=== PATIENT | female | born 1940 | race Caucasian/White ===

== ENCOUNTER → 2016-08-15 | Outpatient (CLI) | payer OTHER, MEDICARE ==
--- NOTE | 2016-08-16 08:57 | MAM ---
EXAM DESCRIPTION: MAMMO BREAST SCREENING BILATERAL CAD, images were reviewed with CAD technology, R2 computer-aided detection. CLINICAL HISTORY: [facility]. COMPARISON: 2012. FINDINGS: Routine views are obtained. Scattered glandular pattern, stable. No dominant mass, architectural distortion or clustered microcalcification.. IMPRESSION: Benign exam. BIRAD CATEGORY: 2 BENIGN RECOMMENDATIONS: FOLLOW-UP: Routine screening mammogram in one year. According to the [employer], yearly mammograms are recommended starting at age 40 and continuing as long as a woman is in good health. Any breast change noted on a breast self-exam should be reported promptly to the patient's healthcare provider. Breast MRI is recommended for women with an approximately 20-25% or greater lifetime risk of breast cancer, including women with a strong family history of breast or ovarian cancer and women who have been treated for Hodgkin's disease. Electronically signed by: Kathy De La Fuente 08/16/2016 08:55
== END ==
LOC: MAMMO 15:07
PROVIDERS: ATTEND Emergency Medicine
DX: Z12.31 Encounter for screening mammogram for malignant neoplasm of breast (principal)
CPT/HCPCS: 77052; G0202

== ENCOUNTER → 2018-10-07 | Outpatient (CLI) | payer OTHER, MEDICARE ==
--- NOTE | 2018-10-09 17:06 | MAM ---
EXAM DESCRIPTION: 3D Screening BILATERAL : Digital Mammography. CLINICAL HISTORY: 78 years Female SCREEN . No complaints. No personal or family history of breast cancer. Childbirth. Postmenopausal. No HRT. Benign left breast biopsy. Lifetime risk of developing breast cancer (Tyrer-Cuzick model)(%): 1.6. COMPARISON: 2-D digital screening bilateral mammography 08/15/2016.. TECHNIQUE: Bilateral CC and MLO projection full-field images, digital tomosynthesis mammographic technique. Bilateral digital 2-D full-field MLO images. CAD not available for tomosynthesis or 2-D images. FINDINGS: The breast parenchymal density pattern is: Scattered areas of fibroglandular density. No skin thickening or nipple retraction. Bilateral solitary microcalcifications. Bilateral vascular calcifications. Focal asymmetry versus mass density at the 9:00 position of the middle third of the left breast, 5 cm from the nipple. Not associated with abnormal calcifications. No new focal, stellate mass or density, focal asymmetry , and no suspicious microcalcifications right breast. IMPRESSION: BI-RADS CATEGORY: 0 - INCOMPLETE- Need additional imaging evaluation. FOLLOW-UP: Recall for additional imaging: Targeted left breast ultrasound of the region of interest middle third left breast. Diagnostic tomosynthesis images of the left breast if indicated by ultrasound findings.. Written communication concerning the IMPRESSION and Follow-up, will be mailed to the patient and referring health care provider. Electronically signed by: Dmitry Guzman MD 10/09/2018 5:03 PM CDT
== END ==
LOC: MAMMO 12:05
PROVIDERS: ATTEND Emergency Medicine
DX: Z12.31 Encounter for screening mammogram for malignant neoplasm of breast (principal)

== ENCOUNTER → 2018-11-13 | Outpatient (CLI) | payer OTHER, MEDICARE ==
--- NOTE | 2018-11-14 13:05 | US ---
EXAM DESCRIPTION: Breast,Left: Ultrasound CLINICAL HISTORY: 78 yearsFemaleABNORMAL MAMMOGRAM COMPARISON: Bilateral screening digital breast tomosynthesis 10/07/2018. TECHNIQUE: Transcutaneous scanning of the left breast utilizing burkett-scale modes. Scanning performed by the clay carman ; observation by Dr. Guzman. FINDINGS: Scanning of the lateral and upper inner quadrant of the middle third of the left breast Breast is mostly fatty tissues with minimal fibroglandular changes. No dominant solid mass or distinct cyst. No parenchymal edema or large calcifications. No overlying skin changes. IMPRESSION: Benign exam. BIRAD CATEGORY: 2 BENIGN FINDINGS. RECOMMENDATIONS: FOLLOW UP: Return to routine digital bilateral mammographic screening, one year interval from September 2018. Written communication explaining the IMPRESSION and follow-up, will be mailed to the patient and referring health care provider. The FINDINGS and the FOLLOW-UP plan were reviewed in person with the patient after the examination. According to the [employer], yearly mammograms are recommended starting at age 40 and continuing as long as a woman is in good health. Any breast change noted on a breast self-exam should be reported promptly to the patient's healthcare provider. Breast MRI is recommended for women with an approximately 20-25% or greater lifetime risk of breast cancer, including women with a strong family history of breast or ovarian cancer and women who have been treated for Hodgkin's disease. A negative mammographic report should not delay tissue diagnosis in patients with significant clinical history or physical findings. Extremely dense breast tissue limits the sensitivity of digital mammography. Electronically signed by: Dmitry Guzman MD 11/14/2018 1:02 PM CDT
== END ==
LOC: MAMMO 14:43
PROVIDERS: ATTEND Emergency Medicine
DX: R92.8 Other abnormal and inconclusive findings on diagnostic imaging of breast (principal)

== ENCOUNTER → 2019-12-26 | Outpatient (CLI) | payer OTHER, MEDICARE ==
--- NOTE | 2019-12-29 15:05 | MAM ---
EXAM DESCRIPTION: 3D Screening BILATERAL : Digital Mammography. CLINICAL HISTORY: 79 years Female SCREENING . No complaints. No personal or family history of breast cancer. Menarche age unknown. Childbirth age unknown. Menopause age unknown. No HRT. Lifetime risk of developing breast cancer (Tyrer-Cuzick model)(%): 2.3. COMPARISON: Bilateral screening digital breast tomosynthesis September 2018. 2-D digital screening bilateral mammography July 2016.. No prior reports available. TECHNIQUE: Bilateral CC and MLO projection full-field images, digital tomosynthesis mammographic technique. Bilateral digital 2-D full-field MLO images. CAD available for 2-D images. FINDINGS: The breast parenchymal density pattern is: Scattered areas of fibroglandular density. No skin thickening or nipple retraction. Skin mole markers. Microcalcifications. Vascular calcifications. More solitary calcifications in the anterior left breast. No new focal, stellate mass or density, focal asymmetry , and no suspicious microcalcifications bilaterally. Stable mammograms compared to prior study. IMPRESSION: Benign exam. BIRAD CATEGORY: 2 BENIGN FINDINGS. RECOMMENDATIONS: FOLLOW UP: Routine digital bilateral mammographic screening, one year interval from November 2019. Written communication explaining the IMPRESSION and follow-up, will be mailed to the patient and referring health care provider. According to the [employer], yearly mammograms are recommended starting at age 40 and continuing as long as a woman is in good health. Any breast change noted on a breast self-exam should be reported promptly to the patient's healthcare provider. Breast MRI is recommended for women with an approximately 20-25% or greater lifetime risk of breast cancer, including women with a strong family history of breast or ovarian cancer and women who have been treated for Hodgkin's disease. A negative mammographic report should not delay tissue diagnosis in patients with significant clinical history or physical findings. Extremely dense breast tissue limits the sensitivity of digital mammography. Electronically signed by: mDitry Guzman MD 12/29/2019 3:03 PM CDT
== END ==
LOC: MAMMO 10:00
PROVIDERS: ATTEND Emergency Medicine
DX: Z12.31 Encounter for screening mammogram for malignant neoplasm of breast (principal)